=== PATIENT | female | born 1955 ===

== ENCOUNTER 2023-01-27 07:20 | Day surgery (SDC) | payer OTHER ==
[~2023-01-27 07:20] MED LIST: CHILDREN'S ASPI81 MG PO; ENALAPRIL MALEAT5 MG PO; HUMALOG100 UNIT/2; JARDIANCE25 MG PO; LANTUS SOL100 UNIT/1; PROTONIX40 MG PO; ROSUVASTATIN CA20 MG PO; SYNTHROID75 MCG PO; ZETIA10 MG PO
== END 2023-01-27 17:10 | disposition home or self-care (01) ==
LOC: CIR.AMB 07:20
PROVIDERS: ATTEND Obstetrics & Gynecology
DX: N84.0 Polyp of corpus uteri (principal); N95.0 Postmenopausal bleeding; D25.9 Leiomyoma of uterus, unspecified; D25.0 Submucous leiomyoma of uterus; Z20.822 Contact with and (suspected) exposure to COVID-19; E78.5 Hyperlipidemia, unspecified; E03.9 Hypothyroidism, unspecified; E11.9 Type 2 diabetes mellitus without complications; I10 Essential (primary) hypertension